=== PATIENT | female | born 2000 | race African-American/Black ===

== ENCOUNTER 2018-11-11 09:42 | Emergency (ER) | payer SELFPAY ==
[~2018-11-11] VITALS: Ht 167.6 cm; Wt 89.0 kg
[2018-11-11] MEDS ORDERED: SODIUM CHLORIDE 0.9% 1000ML BAG (SEPSIS BOLUS) IV ONE (11:00)
[2018-11-11] MEDS ORDERED: ONDANSETRON HCL 4MG/2ML INJ IV ONE (11:00)
[2018-11-11] MEDS ORDERED: FAMOTIDINE 20MG/2ML VIAL IV ONE (11:00)
[2018-11-11 11:17] LABS: BASOPHILS % 0.1 % (0.0-2.0); HEMATOCRIT. 44.6 % (36.0-48.0); HEMOGLOBIN. 15.1 g/dL (12.0-16.0); LYMPHOCYTES % 9.3 % (20.0-50.0); MEAN CORPUSCULAR HEMOGLOBIN 29.7 pg (28.0-32.0); MEAN CORPUSCULAR VOLUME 87.5 fL (81.0-99.0); MEAN PLATELET VOLUME 8.4 fl (7.4-10.4); MONOCYTES % 5.4 % (2.0-8.0); NEUTROPHILS % 85.2 % (40.0-76.0); PLATELET 400 x1000/uL (130-400); RED CELL DISTRIBUTION WIDTH 13.7 % (11.6-14.6)
[2018-11-11 11:21] LABS: HCG SCREEN NEGATIVE
[2018-11-11 11:56] LABS: INR 1.1; PARTIAL THROMBOPLASTIN TIME 28.6 sec (23.4-31.0); PROTHROMBIN TIME 11.1 sec (9.1-11.1)
[2018-11-11 12:37] LABS: CLARITY URINE CLOUDY (CLEAR); COLOR URINE YELLOW (YELLOW); KETONES URINE 4+ (NEGATIVE); LEUKOCYTE ESTERASE URINE NEGATIVE (NEGATIVE); NITRITE URINE NEGATIVE (NEGATIVE); OCCULT BLOOD URINE NEGATIVE (NEGATIVE); PROTEIN URINE 1+ (NEGATIVE); SPECIFIC GRAVITY URINE 1.039 (1.005-1.030); UROBILINOGEN URINE 0.2 E.U./dL (0.2-1.0)
[2018-11-11] MEDS ORDERED: KETOROLAC 15MG/ML VIAL IV ONE (13:00)
[2018-11-11 13:23] LABS: CHLORIDE 110 mEq/L (98-107)
[2018-11-11] MEDS ORDERED: VISCOUS LIDOCAINE 2% 15 ML UDC PO PRN (13:45)
[2018-11-11] MEDS ORDERED: MAGNESIUM/ALUMINUM HYDROXIDE/SIMETHICONE 30ML UDC PO ONE (13:45)
[2018-11-11] MEDS ORDERED: DICYCLOMINE HCL 10MG CAPSULE PO ONE (13:45)
[2018-11-11 14:10] VITALS: BP 118/82
[2018-11-11] MEDS ORDERED: POTASSIUM CHLORIDE 20MEQ TABLET SR PO SCH (14:30)
== END 2018-11-11 15:47 | disposition home or self-care (01) ==
LOC: ER 09:42
DX: N17.9 Acute kidney failure, unspecified (principal); E86.0 Dehydration; R53.81 Other malaise; R19.7 Diarrhea, unspecified
CPT/HCPCS: 36415; 76700; 80053; 81003; 82962; 83690; 84703; 85025; 85610; 85730; 96361; 96374; 96375; 99284; J1885; J2405; J3490; J7030